=== PATIENT | male | born 1960 | race Two or more races ===

== ENCOUNTER 2024-04-02 13:38 | Emergency (ER) | payer OTHER ==
[~2024-04-02] VITALS: Ht 185.4 cm; Wt 77.1 kg
[2024-04-02] MEDS ORDERED: GLIPIZIDE XL5 MG PO (15:23)
[2024-04-02 15:26] VITALS: BP 114/66; O2SAT 98
[2024-04-02] MEDS ORDERED: BENZONATATE 100 MG CAPSULE PO ONE (18:30)
[2024-04-02 18:57] LABS: HEMATOCRIT 39.8 % (39.0-48.0); HEMOGLOBIN 13.3 g/dL (13-16.00); MEAN CELL VOLUME 91.2 fL (80.0-100.00); MEAN CORPUSCULAR HEMOGLOBIN 30.6 pg (27.00-32.0); MEAN CORPUSCULAR HGB CONC 33.5 g/dl (32.0-36.0); PLATELET COUNT 216 K/uL (150-450); RED BLOOD COUNT 4.36 M/uL (4.00-6.00); RED CELL DISTRIBUTION WIDTH 13.2 % (11.5-14.5)
[2024-04-02] MEDS ORDERED: QC TUSSIN DM L118 ML PO (19:41)
[2024-04-02] MEDS ORDERED: BENZONATATE150 MG PO (19:41)
[2024-04-02] MEDS ORDERED: COUGH DROPS1 EACH MM (19:52)
[2024-04-02] MEDS ORDERED: DIABETIC TUSSI118 M3 PO (19:53)
== END 2024-04-02 20:42 ==
LOC: ER 13:40
PROVIDERS: Preventive Medicine Public Health & General Preventive Medicine
DX: J06.9 Acute upper respiratory infection, unspecified (principal); J00 Acute nasopharyngitis [common cold]; Z20.822 Contact with and (suspected) exposure to COVID-19